=== PATIENT | male | born 1955 | race Caucasian/White ===

== ENCOUNTER 2016-09-22 08:43 | Outpatient (CLI) | payer BC ==
[~2016-09-22] VITALS: Ht 180.3 cm; Wt 99.0 kg
[~2016-09-22 08:43] MED LIST: AMOXICILLIN/CLA1 TA1 PO; CENTRUM MEN'S PO; CLARITIN 1010 MG/TAB PO; FOLIC ACID 11 MG/TA1 PO; GLUCOSAMINE & C1 CA1 PO; INFLECTRA100 MG IV; MALARONE 250 MG1 TAB PO; MALARONE PO; METHOTREXA2.5 MG/TAB PO; NEXIUM40 MG PO; PROTONIX 40MG T40 MG PO; PROTONIX40 MG PO; REGLAN 10MG10 MG/TAB PO; TREXALL5 MG PO
[2016-09-22 09:00] VITALS: BP 153/86; PULSE 71; TEMP 97.9
[2016-09-22 09:48] VITALS: BP 145/89; PULSE 69; TEMP 98
[2016-09-22 10:27] VITALS: BP 145/92; PULSE 64; TEMP 98
[2016-09-22 11:07] VITALS: BP 142/99; PULSE 69; TEMP 98.2
[2016-09-22 11:30] VITALS: BP 160/97; PULSE 66; TEMP 97.8
== END 2016-09-22 11:30 | disposition home or self-care (01) ==
LOC: EUO 08:43
DX: M48.8X9 Other specified spondylopathies, site unspecified (principal)
CPT/HCPCS: J1745; J7050

== ENCOUNTER 2016-11-18 08:46 | Outpatient (CLI) | payer BC ==
[~2016-11-18] VITALS: Ht 180.3 cm; Wt 98.5 kg
[2016-11-18 09:50] VITALS: BP 129/79; PULSE 75; TEMP 97.9
[2016-11-18 10:20] VITALS: BP 142/80; PULSE 71; TEMP 98.2
[2016-11-18 10:50] VITALS: BP 143/86; PULSE 71; TEMP 98.1
[2016-11-18 11:20] VITALS: BP 142/82; PULSE 66; TEMP 98.1
[2016-11-18 11:55] VITALS: BP 146/78; PULSE 67; TEMP 98.2
== END 2016-11-18 12:00 | disposition home or self-care (01) ==
LOC: EUO 08:46
DX: M47.899 Other spondylosis, site unspecified (principal)
CPT/HCPCS: J1745; J7050

== ENCOUNTER 2017-01-12 08:35 | Outpatient (CLI) | payer BC ==
[~2017-01-12] VITALS: Ht 180.3 cm; Wt 98.8 kg
[2017-01-12 09:02] VITALS: BP 143/85; PULSE 78; TEMP 96.8
[2017-01-12 09:55] VITALS: BP 139/77; PULSE 63; TEMP 98.3
[2017-01-12 10:25] VITALS: BP 139/80; PULSE 64; TEMP 98.1
[2017-01-12 10:55] VITALS: BP 139/87; PULSE 60; TEMP 97.7
[2017-01-12 11:25] VITALS: BP 148/79; PULSE 63; TEMP 98
== END 2017-01-12 12:33 | disposition home or self-care (01) ==
LOC: EUO 08:35
DX: M46.90 Unspecified inflammatory spondylopathy, site unspecified (principal)
CPT/HCPCS: J1745; J7050

== ENCOUNTER 2017-03-17 13:27 | Outpatient (CLI) | payer BC ==
[~2017-03-17] VITALS: Wt 97.3 kg
[2017-03-17 14:21] VITALS: BP 126/72; PULSE 78; TEMP 98.2
[2017-03-17 14:42] VITALS: BP 128/66; PULSE 73; TEMP 98.2
[2017-03-17 15:15] VITALS: BP 146/99; PULSE 87; TEMP 98.3
[2017-03-17 15:45] VITALS: BP 124/47; PULSE 97; TEMP 98
[2017-03-17 16:15] VITALS: BP 135/81; PULSE 71
[2017-03-17 16:45] VITALS: BP 130/87; PULSE 70; TEMP 97.9
== END 2017-03-17 18:00 | disposition home or self-care (01) ==
LOC: EUO 13:27
DX: M46.90 Unspecified inflammatory spondylopathy, site unspecified (principal); Z79.899 Other long term (current) drug therapy
CPT/HCPCS: J7050; Q5102-ZB

== ENCOUNTER → 2020-12-31 | Outpatient (CLI) | payer BC | LOC: COL.RAD 07:25 | DX: K57.92 Diverticulitis of intestine, part unspecified, without perforation or abscess without bleeding (principal) | CPT/HCPCS: Q9967 ==